=== PATIENT | male | born 1935 | race Hispanic/Latino ===

== ENCOUNTER 2024-07-03 11:37 | Inpatient (IN) | payer MEDICARE ==
[~2024-07-03] VITALS: Ht 167.6 cm; Wt 52.4 kg
[2024-07-03 11:37] VITALS: TEMP 100.1
[~2024-07-03 11:37] MED LIST: ASPIRIN81 MG PO; ATORVASTATIN CA20 MG PO; CREON DR 12,001 EACH PO; DOXAZOSIN MESYLA2 MG PO; FINASTERIDE5 MG PO; GABAPENTIN100 MG PO; LOSARTAN POTASS25 MG PO; METFORMIN HCL850 MG PO; METOPROLOL TART25 MG PO
[2024-07-03 11:54] LABS: BASOPHILS % 0.2 % (0.0-1.0); EOSINOPHILS % 0.2 % (0.0-6.0); HEMATOCRIT 48.3 % (38.2-49.6); HEMOGLOBIN 16.1 g/dL (14.0-18.0); LYMPHOCYTES # (AUTO) 1.1 (1.0-3.2); LYMPHOCYTES % 8.7 % (18.0-39.1); MEAN CORPUSCULAR HEMOGLOBIN 30.8 pg (28-32); MEAN CORPUSCULAR HGB CONC 33.3 g/dL (31-35); MEAN CORPUSCULAR VOLUME 92.4 fL (81-99); MONOCYTES # (AUTO) 0.6 (0.2-0.8); MONOCYTES % 4.4 % (4.4-11.3); NEUTROPHILS % 86.2 % (38.7-80.0); PLATELET COUNT 180 x10e3/uL (140-360); RED BLOOD COUNT 5.23 x10e6/uL (4.3-5.7); RED CELL DISTRIBUTION WIDTH 13.2 % (11.7-14.4); WHITE BLOOD COUNT 12.79 x10e3/uL (4.8-10.8)
[2024-07-03] MEDS: DILTIAZEM HCL 5 MG/ML 5 ML VIAL IV ONE (11:55)
[2024-07-03] MEDS ORDERED: DILTIAZEM HCL VIAL 5 ML ONE (11:57)
[2024-07-03] MEDS: SODIUM CHLORIDE 0.9% 1000ML 1,000 ML IV ONE (11:58)
[2024-07-03 12:07] LABS: INR 1.03
[2024-07-03 12:08] LABS: PARTIAL THROMBOPLASTIN TIME 34.3 seconds (23.8-35.5)
[2024-07-03 12:17] LABS: ALBUMIN 3.4 g/dL (3.5-5.0); ALBUMIN/GLOBULIN RATIO 0.8 (0.8-2.0); ANION GAP 16.1 mmol/L (8-16); BILIRUBIN,TOTAL 2.2 mg/dL (0.2-1.2); CALCIUM 9.3 mg/dL (8.4-10.2); CREATININE, SERUM 1.12 mg/dL (0.72-1.25); POTASSIUM 4.1 mmol/L (3.5-5.1); TOTAL PROTEIN 7.9 g/dL (6.5-8.1)
[2024-07-03] MEDS: DILTIAZEM HCL 30 MG TAB PO SCH (13:00)
[2024-07-03 13:01] VITALS: PULSE 81; RESP 18
[2024-07-03] MEDS ORDERED: SODIUM CHLORIDE FLUSH 10 ML SYR INJ PRN (13:45)
[2024-07-03] MEDS ORDERED: ONDANSETRON HCL INJ 2MG/ML 2ML 2 MG/ML VIAL IV PRN (13:45)
[2024-07-03 16:00] VITALS: BP 113/50; PULSE 72; RESP 18; TEMP 97.5; O2SAT 95
[2024-07-03] MEDS ORDERED: CEFTRIAXONE 1 GM VIAL IM SCH (16:30)
[2024-07-03] MEDS ORDERED: DEXTROSE 50% SYRINGE 50 ML IV PRN (16:45)
[2024-07-03 16:49] VITALS: BP 113/50; PULSE 72; RESP 18; TEMP 97.5; O2SAT 95
[2024-07-03] MEDS: INSULIN LISPRO 100 UNIT/1 ML 3ML VIAL SQ SCH (16:57)
[2024-07-03] MEDS: SODIUM CHLORIDE 0.9% 1000ML 1,000 ML IV SCH (17:21)
[2024-07-03 20:00] VITALS: BP 122/57; PULSE 67; RESP 16; TEMP 97.5; O2SAT 98
[2024-07-03] MEDS: METOPROLOL TARTRATE 25 MG TAB PO SCH (20:11)
[2024-07-03 21:00] VITALS: BP 122/57; PULSE 62; RESP 18; TEMP 97.8; O2SAT 98
[2024-07-04] VITALS (9 sets, daily range): BP systolic 107–136; BP diastolic 50–67; PULSE 55–83; RESP 18–20; TEMP 98–98.9; O2SAT 96–100
[2024-07-04 05:15] LABS: BASOPHILS % 0.3 % (0.0-1.0); EOSINOPHILS % 0.3 % (0.0-6.0); HEMATOCRIT 39.7 % (38.2-49.6); HEMOGLOBIN 13.2 g/dL (14.0-18.0); LYMPHOCYTES # (AUTO) 1.1 (1.0-3.2); LYMPHOCYTES % 10.1 % (18.0-39.1); MEAN CORPUSCULAR HEMOGLOBIN 30.8 pg (28-32); MEAN CORPUSCULAR HGB CONC 33.2 g/dL (31-35); MEAN CORPUSCULAR VOLUME 92.5 fL (81-99); MONOCYTES # (AUTO) 0.5 (0.2-0.8); MONOCYTES % 5.1 % (4.4-11.3); NEUTROPHILS # (AUTO) 8.9 (2.1-6.9); NEUTROPHILS % 83.8 % (38.7-80.0); PLATELET COUNT 177 x10e3/uL (140-360); RED BLOOD COUNT 4.29 x10e6/uL (4.3-5.7); RED CELL DISTRIBUTION WIDTH 13.2 % (11.7-14.4); WHITE BLOOD COUNT 10.59 x10e3/uL (4.8-10.8)
[2024-07-04 05:40] LABS: ALBUMIN 2.8 g/dL (3.5-5.0); ALBUMIN/GLOBULIN RATIO 0.8 (0.8-2.0); ANION GAP 10.7 mmol/L (8-16); BILIRUBIN,TOTAL 1.4 mg/dL (0.2-1.2); CALCIUM 8.3 mg/dL (8.4-10.2); CREATININE, SERUM 0.86 mg/dL (0.72-1.25); POTASSIUM 3.7 mmol/L (3.5-5.1); TOTAL PROTEIN 6.5 g/dL (6.5-8.1)
[2024-07-04] MEDS: ASPIRIN 325 MG TAB EC PO SCH (08:18)
[2024-07-04] MEDS: METHYLPREDNISOLONE SOD SUCC 40 MG/ML VIAL 1ML IV SCH (11:59)
[2024-07-04] MEDS: AMIODARONE HCL 200 MG TAB PO SCH (12:00)
[2024-07-04] MEDS: ENOXAPARIN SOD INJ 60 MG/0.6 ML SYR SC SCH (12:01)
[2024-07-04 14:12] LABS: BILIRUBIN,URINE NEGATIVE (NEGATIVE); CLARITY,URINE CLEAR (CLEAR); COLOR,URINE YELLOW (YELLOW); GLUCOSE, URINE 1+ (NEGATIVE); KETONES,URINE 2+ (NEGATIVE); LEUKOCYTE ESTERASE ,URINE NEGATIVE (NEGATIVE); NITRITE,URINE NEGATIVE (NEGATIVE); PH,URINE 5.5 (5 - 7); PROTEIN,URINE DIPSTICK TRACE (NEGATIVE); URINE UROBILINOGEN 4 mg/dL (0.2 - 1)
[2024-07-04 14:29] LABS: BACTERIA,URINE RARE /HPF; RBC,URINE 0-5 /HPF (0-5)
[2024-07-04] MEDS: LEVALBUTEROL HCL SOLN NEBU 0.63 MG/3 ML NEB INH SCH (14:29)
[2024-07-04] MEDS: IPRATROPIUM BROMIDE 0.02% 2.5 ML NEB NEB SCH (14:29)
[2024-07-04 14:30] LABS: AMORPHOUS SEDIMENT,URINE FEW (FEW); EPITHELIAL CELLS,URINE FEW /LPF; MUCUS,URINE FEW (RARE)
[2024-07-04] MEDS: CHLORPROMAZINE HCL 25 MG TAB PO PRN (14:37)
[2024-07-04] MEDS: SODIUM CHLORIDE 0.9% 1000ML 1,000 ML IV SCH (14:37)
[2024-07-05] VITALS (12 sets, daily range): BP systolic 92–128; BP diastolic 47–61; PULSE 40–91; RESP 16–20; TEMP 97.3–98.8; O2SAT 95–100
[2024-07-05] MEDS: AMIODARONE HCL 200 MG TAB PO SCH (10:00)
[2024-07-05] MEDS: METOPROLOL TARTRATE 25 MG TAB PO SCH (17:00)
[2024-07-06] VITALS (11 sets, daily range): BP systolic 116–155; BP diastolic 54–74; PULSE 55–71; RESP 16–19; TEMP 97.4–97.6; O2SAT 97–100
[2024-07-06] MEDS: ASPIRIN 81 MG ENTERIC COATED PO SCH (08:23)
[2024-07-06] MEDS ORDERED: LIDOCAINE HCL 1% LOCAL INJ 20 ML VIAL ONE (13:23)
[2024-07-07] VITALS (7 sets, daily range): BP systolic 116–139; BP diastolic 52–67; PULSE 49–96; RESP 16–22; TEMP 97.7–97.8; O2SAT 96–100
[2024-07-07] MEDS: PREDNISONE 10 MG TAB PO SCH (09:33)
[2024-07-07] MEDS ORDERED: METOPROLOL SUCC25 MG PO (16:21)
[2024-07-07] MEDS ORDERED: AMIODARONE HCL100 MG PO (16:22)
[2024-07-07] MEDS ORDERED: ELIQUIS2.5 MG PO (16:25)
[2024-07-07] MEDS ORDERED: LOSARTAN POTASS25 MG PO (16:25)
== END 2024-07-07 16:55 | disposition home or self-care (01) | DRG 309 ==
LOC: ER 11:41 → ERHOLD 13:43 → MED/SURG2 15:55
PROVIDERS: ADMIT Internal Medicine; ATTEND Internal Medicine
PROC: 0CB93ZX Excision of Left Parotid Gland, Percutaneous Approach, Diagnostic (ICD-10-PCS; principal; 2024-07-06)
DX: I48.0 Paroxysmal atrial fibrillation (principal); Z68.1 Body mass index [BMI] 19.9 or less, adult; R00.2 Palpitations; I48.92 Unspecified atrial flutter; R62.7 Adult failure to thrive; D11.9 Benign neoplasm of major salivary gland, unspecified; E86.0 Dehydration; E11.51 Type 2 diabetes mellitus with diabetic peripheral angiopathy without gangrene; R00.0 Tachycardia, unspecified; I10 Essential (primary) hypertension; E78.00 Pure hypercholesterolemia, unspecified; R63.4 Abnormal weight loss; N40.0 Benign prostatic hyperplasia without lower urinary tract symptoms; R53.81 Other malaise; J44.9 Chronic obstructive pulmonary disease, unspecified; Z11.52 Encounter for screening for COVID-19; I25.10 Atherosclerotic heart disease of native coronary artery without angina pectoris; Z79.01 Long term (current) use of anticoagulants; Z79.82 Long term (current) use of aspirin; Z79.84 Long term (current) use of oral hypoglycemic drugs; Z95.5 Presence of coronary angioplasty implant and graft; I25.2 Old myocardial infarction; Z90.49 Acquired absence of other specified parts of digestive tract; Z87.891 Personal history of nicotine dependence
CPT/HCPCS: 10005; 36415; 70491; 71045; 74470; 76536; 80053; 81001; 82948; 83605; 83880; 84443; 84484; 85025; 85610; 85730; 87040; 87086; 87400; 88172; 88173; 88305; 93005; 94640; 94799; 96372; 99284; J0696; J1650; J2003; J2919; J7030; J7512; U0002

== ENCOUNTER 2024-07-11 11:05 | Emergency (ER) | payer MEDICARE ==
[~2024-07-11] VITALS: Ht 167.6 cm; Wt 52.2 kg
[~2024-07-11 11:05] MED LIST changes: +AMIODARONE HCL100 MG PO; +ELIQUIS2.5 MG PO; +METOPROLOL SUCC25 MG PO
[2024-07-11 11:26] VITALS: TEMP 98.9
[2024-07-11 11:40] VITALS: PULSE 53; RESP 16
[2024-07-11 11:50] LABS: BASOPHILS % 0.3 % (0.0-1.0); EOSINOPHILS # (AUTO) 0.1 (0.0-0.4); EOSINOPHILS % 0.9 % (0.0-6.0); HEMATOCRIT 43.8 % (38.2-49.6); HEMOGLOBIN 14.7 g/dL (14.0-18.0); LYMPHOCYTES # (AUTO) 0.6 (1.0-3.2); LYMPHOCYTES % 7.7 % (18.0-39.1); MEAN CORPUSCULAR HEMOGLOBIN 29.9 pg (28-32); MEAN CORPUSCULAR HGB CONC 33.6 g/dL (31-35); MEAN CORPUSCULAR VOLUME 89.2 fL (81-99); MONOCYTES # (AUTO) 0.4 (0.2-0.8); MONOCYTES % 5.4 % (4.4-11.3); NEUTROPHILS # (AUTO) 6.4 (2.1-6.9); NEUTROPHILS % 84.3 % (38.7-80.0); PLATELET COUNT 291 x10e3/uL (140-360); RED BLOOD COUNT 4.91 x10e6/uL (4.3-5.7); WHITE BLOOD COUNT 7.63 x10e3/uL (4.8-10.8)
[2024-07-11 11:59] LABS: INR 0.95; PARTIAL THROMBOPLASTIN TIME 30.4 seconds (23.8-35.5); PROTHROMBIN TIME 13.2 seconds (11.9-14.5)
[2024-07-11] MEDS: SODIUM CHLORIDE 0.9% 1000ML 1,000 ML IV STA (12:05)
[2024-07-11] MEDS: Morphine 2mg Syringe 2 MG/ML SYR IV STA (12:05)
[2024-07-11] MEDS: ONDANSETRON HCL INJ 2MG/ML 2ML 2 MG/ML VIAL IV STA (12:06)
[2024-07-11 12:13] LABS: ALBUMIN 3.5 g/dL (3.5-5.0); ALBUMIN/GLOBULIN RATIO 1.1 (0.8-2.0); ANION GAP 15.2 mmol/L (8-16); BILIRUBIN,TOTAL 1.5 mg/dL (0.2-1.2); CALCIUM 8.8 mg/dL (8.4-10.2); CREATININE, SERUM 0.99 mg/dL (0.72-1.25); MAGNESIUM 1.8 MG/DL (1.3-2.1); POTASSIUM 4.2 mmol/L (3.5-5.1); TOTAL PROTEIN 6.8 g/dL (6.5-8.1)
[2024-07-11 12:15] LABS: B-TYPE NATRIURETIC PEPTIDE2 208.8 pg/mL (0-100)
[2024-07-11 12:19] LABS: TROPONIN I 0.058 ng/mL (0-0.300)
[2024-07-11] MEDS ORDERED: DEXTROSE 50% SYRINGE 50 ML IV ONE (12:24)
[2024-07-11 13:24] LABS: CLARITY,URINE HAZY (CLEAR); COLOR,URINE YELLOW (YELLOW); GLUCOSE, URINE 2+ (NEGATIVE); LEUKOCYTE ESTERASE ,URINE NEGATIVE (NEGATIVE); NITRITE,URINE NEGATIVE (NEGATIVE); PH,URINE 6 (5 - 7); PROTEIN,URINE DIPSTICK NEGATIVE (NEGATIVE)
[2024-07-11 13:25] LABS: BILIRUBIN,URINE NEGATIVE (NEGATIVE); KETONES,URINE 1+ (NEGATIVE); URINE UROBILINOGEN 0.2 mg/dL (0.2 - 1)
[2024-07-11 13:27] LABS: BACTERIA,URINE FEW /HPF; EPITHELIAL CELLS,URINE FEW /LPF
[2024-07-11] MEDS: DEXTROSE 50% SYRINGE 50 ML IV STA (13:40)
[2024-07-11] MEDS ORDERED: ONDANSETRON ODT4 MG PO (14:51)
[2024-07-11] MEDS ORDERED: DICYCLOMINE HCL10 MG PO (14:51)
[2024-07-11 15:00] VITALS: BP 133/48; PULSE 62; RESP 18; TEMP 98.7; O2SAT 98
== END 2024-07-11 15:10 | disposition home or self-care (01) ==
LOC: ER 11:08
DX: R11.2 Nausea with vomiting, unspecified (principal); E86.0 Dehydration; R10.33 Periumbilical pain; I10 Essential (primary) hypertension; E11.649 Type 2 diabetes mellitus with hypoglycemia without coma; E78.5 Hyperlipidemia, unspecified; I25.10 Atherosclerotic heart disease of native coronary artery without angina pectoris; R94.31 Abnormal electrocardiogram [ECG] [EKG]; I25.2 Old myocardial infarction
CPT/HCPCS: 36415; 71045; 74177; 80053; 81001; 82550; 82948; 83605; 83690; 83735; 83880; 84484; 85025; 85610; 85730; 87040; 87086; 93005; 99284; J2270; J2405; J2470; J7030; J7799

== ENCOUNTER 2024-07-20 10:41 | Emergency (ER) | payer MEDICARE ==
[~2024-07-20] VITALS: Ht 172.7 cm; Wt 77.1 kg
[~2024-07-20 10:41] MED LIST changes: +DICYCLOMINE HCL10 MG PO; +ONDANSETRON ODT4 MG PO
[2024-07-20 10:48] VITALS: TEMP 98.5
[2024-07-20] MEDS: ACETAMINOPHEN 325 MG TAB PO ONE (11:22)
[2024-07-20 12:04] VITALS: PULSE 63; RESP 15; O2SAT 100
== END 2024-07-20 12:06 | disposition home or self-care (01) ==
LOC: ER 10:55
DX: R51.9 Headache, unspecified (principal); I10 Essential (primary) hypertension; E11.9 Type 2 diabetes mellitus without complications; I48.91 Unspecified atrial fibrillation; I25.10 Atherosclerotic heart disease of native coronary artery without angina pectoris; E78.5 Hyperlipidemia, unspecified; I25.2 Old myocardial infarction; Z95.5 Presence of coronary angioplasty implant and graft; F17.210 Nicotine dependence, cigarettes, uncomplicated
CPT/HCPCS: 70450; 99283